=== PATIENT | female | born 1960 ===

== ENCOUNTER 2017-11-17 03:40 | Day surgery (SDC) | payer OTHER ==
[~2017-11-17] VITALS: Ht 158.8 cm; Wt 127.5 kg
[~2017-11-17 03:40] MED LIST: DICL-195 PO; PRAV20TA65 PO
[2017-11-17 11:05] VITALS: BP 123/67
[2017-11-17] MEDS ORDERED: PROPOFOL EMUL(*) 10MG/ML 20 ML 20 ML ONE ×2 (11:15→12:16)
[2017-11-17] MEDS ORDERED: MIDAZOLAM 2 MG/2 ML VIAL IVP PRN (11:30)
[2017-11-17] MEDS ORDERED: NORMOSOL R SOLN(*) 1000 ML BAG 1,000 ML IV PRN (11:30)
[2017-11-17] MEDS ORDERED: LIDOCAINE/SOD BICARB 8.4% SYR ID ONE (11:30)
[2017-11-17 12:29] VITALS: BP 111/66
[2017-11-17 12:45] VITALS: BP 126/82
[2017-11-17 13:00] VITALS: BP 124/74
[2017-11-17 13:16] VITALS: BP 127/76
[2017-11-17 13:18] VITALS: BP 118/73
== END 2017-11-17 13:30 | disposition home or self-care (01) ==
LOC: OR 03:40
PROVIDERS: ATTEND Family Medicine
DX: Z12.11 Encounter for screening for malignant neoplasm of colon (principal)
CPT/HCPCS: 00812; 45378; J2704

== ENCOUNTER → 2018-10-05 | Outpatient (REF) | payer OTHER | LOC: ZZSENDIN 15:43 | PROVIDERS: ATTEND Family Medicine | DX: R07.9 Chest pain, unspecified (principal) | CPT/HCPCS: 85379 ==